=== PATIENT | female | born 1990 | race Caucasian/White ===

== ENCOUNTER 2021-08-12 21:37 | Emergency (ER) | payer OTHER ==
--- OUTSIDE RECORDS SUMMARY | 2021-08-12 21:40 | XMS REPORT | Continuity of Care Document ---
:[address] [facility] t Address [address] [place] [address] Dr. Gomez [address] [place] [address] Care Team Providers Name Role Phone ZACH Attending Clinician Unavailable DR Itz MEEHAN Attending Clinician Unavailable TAI Attending Clinician Unavailable DR Itz MEEHAN Admitting Clinician Unavailable Problems Condition Condition Condition Status Onset Resolution Last Treating Co mments Source Name Details Category Date Date Treatment Clinician Date History of History of Problem Resolve [facility] attention attention d ity of deficit deficit [place] disorder disorder Physic i ans Yeast Yeast Problem Active Univers infection infection ity of of the of the [place] vagina vagina Physici ans UTI UTI Problem Active Univers symptoms symptoms ity of [place] Physici ans Encounter Encounter Problem Active Uni vers for well for well [place] of [place] exam [place] exam [place] with with Physici routine routine ans gynecologi gynecologi sam exam sam exam Vaginal Vaginal Problem Active Univers discharge discharge ity of [place] Physici ans Allergies, Adverse Reactions, Alerts This patient has no known allergies or adverse reactions. Social History Smoking Status Start Date Stop Date Source Never smoker [facility] xa Physicians Medications Ordered Filled Start Stop Current Ordering Indication Dosage Frequency Signature Comments Components Source Medication Medication Date Date Medication? Clinician (SIG) Name Name MetroNIDAZO MetroNIDAZO Yes MICHAEL TAKE 1 Univers LE 500 MG LE 500 MG 2-08 TAI M.D. TABLET BY ity of Oral Tablet Oral Tablet 00:00: MOUTH [place] 00 TWICE Physici DAILY FOR ans 7 DAYS Sulfamethox Sulfamethox Yes MICHAEL 1 Q0.5D TAKE 1 Univers azole-Trime azole-Trime 2-08 TAI M.D. TABLET ity of thoprim thoprim 00:00: TWICE [place] 800-160 MG 800-160 MG 00 DAILY Ph ysici Oral Tablet Oral Tablet a ns Fluconazole Fluconazole Yes MICHAEL 1 QD TAKE 1 Univers 150 MG Oral 150 MG Oral 2-08 LUJAN M.D. TABLET ity of Tablet Tablet 00:00: DAILY [place] 00 Physici ans Nitrofurant Nitrofurant 2017-0 Yes MICHAEL 1 daily Univers oin Monohyd oin Monohyd 09-10 TAI [place] ity of Macro 100 Macro 100 00:00: Ankit as MG Oral MG Oral 00 Physici Capsule Capsule ans Vital Signs Vital Name Observation Time Observation Value Comments Source BP Systolic 2017-10-07 126 mm[Hg] Location: [facility] 10:41:00 Position: [place] Physician s Sitting BP Diastolic 2017-10-07 77 mm[Hg] Location: [facility] 10:41:00 Position: [place] Physician s Sitting Height 2017-10-07 68 [in_us] [facility] 10:41:00 [place] Physician s Weight 2017-10-07 157.5 [lb_av] [facility] 10:41:00 [place] Physician s Body Mass Index 2017-10-07 23.95 kg/m2 University o f Calculated 10:41:00 [place] Physician s Heart Rate 2017-10-07 105 /min [facility] 10:41:00 [place] Physician s Procedures Procedure Date / Time Performed Performing Clinician Pieter Rios [facility] - Affirm 2017-10-07 00:00:00 [facility] VPIII (BV Panel) Physicians . [facility] - 2017-10-07 00:00:00 [place] o f [place] GC/Chlamydia Physicians [[facility]] CULTURE, URINE, 2017-10-07 00:00:00 [facility] ROUTINE Physicians Encounters Start End Encounter Admission Attending Care Care Encounter Source Date/Time Date/Time Type Type Clinicians Facility Department ID 2019-10-[address] [facility] [id number] [facility] oria 23:56:00 l Brendon Ingramoria l [facility] 2021-08-12 2021-08-12 Emergency [facility] [id number] [place] 00:00:00 00:00:[address] 2021-05-09 2021-05-09 Emergency SERRANO, [facility] [id number] [place] 00:00:00 00:00:00 KENDY [address] 2018-06-21 2018-06-21 Emergency Melquiades MEEHAN [facility] ECC [id number] [place] 09:30:00 12:10:00 STEFANO [facility] 2017-10-07 2017-10-07 App[facility]RAUL [facility] [id number] Univers 10:30:00 10:30:00 t; MICHAEL LUJAN, [place] ity leland RODRIGUEZ M.D. [facility] Edy Physici ans 2016-09-10 2016-09-10 Appointmen RAUL LUJAN [facility] [id number] Univers 14:15:00 14:15:00 t; MICHAEL LUJAN, solomon Edy RODRIGUEZ [place] Edy Physici ans Results Test Description Test Time Test Comments Results Result Comments Source URINALYSIS WITH MICRO 2018-06-21 11:54:00 Test Item Value Reference Range Interpretation Comme nts COLOR (test code = COLU) RED YELLOW A CLARITY (test code = CLA) CLOUDY CLEAR A GLUCOSE UR (test code = UA GLUCOSE) NEGATIVE NEGATIVE BILI UR (test code = BILE) NEGATIVE NEGATIVE KETONES UR (test code = AMARI) 2+ NEGATIVE A SP GRAVITY (test code = SPGR) 1.020 1.005-1.030 PH UR (test code = PH) 5.5 4.5-8.0 PROTEIN UR (test code = PU) 1+ NEGATIVE A UROBIL UR (test code = UROQ) 0.2 EU/dL 0.2-1.0 NITRITE UR (test code = NITRITE) NEGATIVE NEGATIVE BLOOD UR (test code = UA BLOOD) 3+ NEGATIVE A LEUK ES UR (test code = LEUK) 1+ NEGATIVE A WBC UR (test code = UWBC) 5 /HPF 0-5 RBC UR (test code = URBC) 65 /HPF 0-2 H EPITH UR (test code = UEPC) FEW /LPF FEW BACTERIA UR (test code = UBACT) FEW /HPF NONE A CAST UR (test code = CAST) /LPF NONE CRYSTAL UR (test code = CRYU) / LPF NONE MUCUS UR (test code = MUC) / HPF NONE AMORPH UR (test code = NEEL) / HPF NONE TRICH UR (test code = UTRICH) /HPF NONE YEAST UR (test code = UY) /HPF NONE SPERM UR (test code = USPERM) /HPF NONE URINE [id number] 11:50:00 Test Item Value Reference Range Interpretation Comments PREG UR (test code = PGU) POSITIVE NEGATIVE A COMPREHENSIVE METABOLIC [id number] 10:34:00 Test Item Value Reference Range Interpretation Comments GLUCOSE (test code = 06D) 84 mg/dL 75-100 SODIUM (test code = 01A) 139 mmol/L 136-145 POTASSIUM (test code = 01B) 3.4 mmol/L 3.6-5.1 L CHLORIDE (test code = 04A) 105 mmol/L 98-107 CO2 (test code = 02A) 22 mmol/L 22-32 ANION GAP (test code = ANG) 15.4 mmol/L BUN (test code = 05D) 9 mg/dL 7-18 CREATININE (test code = 03E) 0.8 mg/dL 0.4-1.1 BUN/CREA (test code = BCR) 11 12-20 L CALCIUM (test code = 09D) 9.1 mg/dL 8.3-9.5 BILI TOTAL (test code = 11A) 0.6 mg/dL 0.2-1.0 PROTEIN (test code = 07D) 7.9 g/dL 6.4-8.2 ALBUMIN (test code = 08D) 4.4 g/dL 3.5-4.8 GLOBULIN (test code = GLB) 3.5 g/dL 1.5-3.8 ALB/GLOB (test code = AGRR) 1.3 1.0-2.6 ALK PHOS (test code = 35A) 57 IU/L 42-121 AST (test code = 30A) 41 IU/L <=42 ALT (test code = 31A) 25 IU/L <=78 BETA HCG QUANTITATIVE [id number] 10:33:00 Test Item Value Reference Range Interpretation Comments BHCG QUANT (test 7269.00 mIU/mL code = A17) BHCGQ (test code = QUANTITATIVE BHCG BHCQ) RESULT INTERPRETATION --- APPROXIMATE APPROXIMATE GESTATIONAL AGE HCG RANGE (WEEKS) (mIU/mL) - 0.2 - 1 5 - 50 1 - 2 50 - 500 2 - 3 100 - 5,000 3 - 4 500 - 10,000 4 - 5 1,000 - 50,000 5 - 6 10,000 - 100,000 6 - 8 15,000 - 200,000 8 - 12 10,000 - 100,000 --- U/S <14 [id number] 10:13:55PELVIC ULTRASOUND:Location code: [id number] HISTORY: Bleeding from vaginaComparison: NoneTECHNIQUE: T ransabdominal sonography of the pelvis was performed. Patientrefused transvaginal examFINDINGS: Theuterus is uniform in echogenicity measuring 9.5 x 6.3 x 6.6 cm. The endometrium is heterogeneous andcontains echogenic debris and/or fluid.There is no visualized gestational sac. The cervix is closed.The right ovary measures 2.3 x 2.4 x 1.8 cm. The left ovary measures 2.2 x 2.8x 2.1 cm. Small follicles are noted bilaterally. Color flow is normal in theovaries bilaterally. Trace free fluid is present within the cul-de-sac. Thereis no adnexal mass. IMPRESSION:No visualized intra- or extrauterine . Recommend correlation withbeta-hCG and follow-up ultrasound in 3-5 days, if indicated.CBC (INCLUDES AUTOMATED DIFFERENTIAL)2018-06-21 10:06:00 Test Item Value Reference Range Interpretation Comments WBC (test code = WBC) 11.4 10\S\3/uL 4.5-11.0 H RBC (test code = RBC) 4.41 10\S\6/uL 4.30-5.70 HGB (test code = HBG) 13.3 g/dL 12.0-15.5 HCT (test code = HCT) 39.0 % 35.0-44.0 MCV (test code = MCV) 88.4 fL 81.0-99.0 MCH (test code = MCH) 30.2 pg 27.0-31.0 MCHC (test code = MCHC) 34.1 g/dL 32.0-36.0 RDW (test code = RDW) 13.4 % 11.5-14.5 PLT (test code = PLT) 338 10\S\3/uL 130-400 MPV (test code = MPV) 10.5 fL 9.4-12.4 NEUTROP # (test code = NE#) 6.7 10\S\3/uL 1.6-8.0 LYMPH # (test code = LY#) 3.1 10\S\3/uL 1.1-3.5 MONOCYTE # (test code = MO#) 0.9 10\S\3/uL 0.0-1.1 EOSINOPH # (test code = EO#) 0.6 10\S\3/uL 0.0-0.7 BASOPHIL # (test code = BA#) 0.2 10\S\3/uL 0.0-0.3 IG # (test code = IG#) 0.03 10\S\3/uL 0.00-0.06 NRBC # (test code = NRBC#) 0.00 10\S\3/uL 0.00-0.01 NEUTROPH % (test code = NE%) 58.9 % 35.0-73.0 LYMPH % (test code = LY%) 26.7 % 20.0-55.0 MONO % (test code = MO%) 7.6 % 2.5-10.0 EOSINOPH % (test code = EO%) 4.9 % 0.0-5.0 BASOPHIL % (test code = BA%) 1.6 % 0.0-2.0 IG % (test code = IG%) 0.3 % 0.0-0.8 NRBC% (test code = NRBC%) 0.0 % 0.0-0.2 MANDIFF (test code = MDIFF) NO NO RBC MORPH (test code = RBCMOR) NORMAL [[facility]] CULTURE, URINE, [id number] 15:28:01 Test Item Value Reference Range Interpretation Comments ORGANISM (test code = Citrobacter koseri 699-9) FINAL REPORT (test >100,000 CFU/mL code = FINAL REPORT) Citrobacter koseri [facility] Physicians[H] [id number] 15:28:01 Test Item Value Reference Range Interpretation Comments ORGANISM (test code = Citrobacter koseri 699-9) Amikacin (test code = - S Amikacin) Cefazolin (test code - S = Cefazolin) Ceftazidime (test - S code = Ceftazidime) Ceftriaxone (test - S code = Ceftriaxone) Ciprofloxacin (test - S code = Ciprofloxacin) Cefepime (test code = - S Cefepime) Gentamicin (test code - S = Gentamicin) Levofloxacin (test - S code = Levofloxacin) Nitrofurantoin (test - S code = Nitrofurantoin) Piperacillin/Tazobact - S am (test code = Piperacillin/Tazobact am) Trimethoprim/Sulfamet - S hoxazole (test code = Trimethoprim/Sulfamet hoxazole) Tobramycin (test code - S = Tobramycin) Meropenem (test code - S = Meropenem) Tetracycline (test SEE NOTES S S= Suscep tible, code = Tetracycline) R= Resi stant, I= Intermediate, N/A= Not Applicable [facility]. [facility] - Affirm VPIII (BV Panel)2017-10-07 00:00:00 Test Item Value Reference Range Interpretation Comments Affirm VPIII (BV Panel) REPORT See Comment (test code = Affirm VPIII (BV Panel) REPORT) [facility] Physicians
[2021-08-12 22:07] LABS: Urine Blood Negative (Negative); Urine Glucose Negative (Negative); Urine Protein Negative (Negative); Urine Specific Gravity >=1.030 (1.005-1.030); Urine pH 5.5 (5.0-7.0)
[2021-08-12 22:30] LABS: Urine Specific Gravity/Preg >1.030 (1.005-1.030)
[2021-08-12] MEDS ORDERED: KETOROLAC 30 MG/ML INJ ONE (22:31)
[2021-08-12] MEDS ORDERED: Ringers Lactate 1,000 ML IV ONE (22:31)
[2021-08-12 22:44] LABS: Absolute Lymphocytes (CBC) 0.6 K/uL (0.7-4.9); Basophils % 0.1 % (0-1.3); Hematocrit 40.6 % (36.0-45.0); Lymphocytes % 6.6 % (15.3-44.8); MPV 8.9 fL (7.6-11.3); RBC Red Blood Cell Count 4.72 M/uL (3.86-4.86)
[2021-08-12 23:03] LABS: Albumin 3.3 g/dL (3.4-5.0); Bilirubin Direct 0.2 mg/dL (0-0.2); Bilirubin Total 0.8 mg/dL (0.2-1.0); Protein, Total 6.5 g/dL (6.4-8.2)
[2021-08-13] MEDS ORDERED: FENTANYL CITR 100 MCG/2 ML ONE (00:21)
--- NOTE | 2021-08-13 00:27 | EDPHYS ---
Physician Documentation [facility] Name: Kate Benson Age: 30 yrs Sex: Female : 1990 Arrival Date: 08/12/2021 Time: 21:38 Bed 13 Private MD: ED Physician Florentin Allen HPI: 08/12 23:13 This 30 yrs old Female presents to ER via Ambulatory with complaints of Abdominal Pain. jr8 23:13 Severity of pain: At its worst the pain was moderate in the emergency department the jr8 pain is unchanged. It is unknown whether or not the patient has had similar symptoms in the past. The patient has not recently seen a physician. This is a 30-year-old female who presented to the emergency room with complaints of lower abdominal discomfort radiating to the back along with fevers. Patient stated that she has had kidney infection in the past and feels like she is starting to have another one. Patient stated that she had nausea vomiting a couple days prior to this but that the rest of family had this also.. 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 - Social history:: Smoking status: Reported history of juuling and/or vaping. ROS: 23:13 Eyes: Negative for injury, pain, redness, and discharge, ENT: Negative for injury, jr8 pain, and discharge, Neck: Negative for injury, pain, and swelling, Cardiovascular: Negative for chest pain, palpitations, and edema, Respiratory: Negative for shortness of breath, cough, wheezing, and pleuritic chest pain, Back: Negative for injury and pain, MS/Extremity: Negative for injury and deformity, Skin: Negative for injury, rash, and discoloration, Neuro: Negative for headache, weakness, numbness, tingling, and seizure. 23:13 Abdomen/GI: Positive for abdominal pain, nausea and vomiting. 23:13 : Positive for urinary symptoms. Exam: 23:13 Constitutional: This is a well developed, well nourished patient who is awake, alert, jr8 and in no acute distress. ENT: Nares patent. No nasal discharge, no septal abnormalities noted. Tympanic membranes are normal and external auditory canals are clear. Oropharynx with no redness, swelling, or masses, exudates, or evidence of obstruction, uvula midline. Mucous membranes moist. Neck: Trachea midline, no thyromegaly or masses palpated, and no cervical lymphadenopathy. Supple, full range of motion without nuchal rigidity, or vertebral point tenderness. No Meningismus. Cardiovascular: Regular rate and rhythm with a normal S1 and S2. No gallops, murmurs, or rubs. Normal PMI, no JVD. No pulse deficits. Respiratory: Lungs have equal breath sounds bilaterally, clear to auscultation and percussion. No rales, rhonchi or wheezes noted. No increased work of breathing, no retractions or nasal flaring. Back: No spinal tenderness. Right-sided CVA tenderness present. Full range of motion. Skin: Warm, dry with normal turgor. Normal color with no rashes, no lesions, and no evidence of cellulitis. MS/ Extremity: Pulses equal, no cyanosis. Neurovascular intact. Full, normal range of motion. Neuro: Awake and alert, GCS 15, oriented to person, place, time, and situation. Cranial nerves II-XII grossly intact. Motor strength 5/5 in all extremities. Sensory grossly intact. Cerebellar exam normal. Normal gait. 23:13 Abdomen/GI: Inspection: abdomen appears normal, Bowel sounds: active, all quadrants, Palpation: soft, in all quadrants, mild abdominal tenderness, in the suprapubic area, right lower quadrant and left lower quadrant, mass, is not appreciated, rebound tenderness, is not appreciated, voluntary guarding, is not appreciated, involuntary guarding, is not appreciated, no appreciated organomegaly, Indicators: McBurney's point is not tender, Beasley's sign is negative, Rovsing's sign is negative, Liver: tenderness, is not appreciated. Vital Signs: 21:46 BP 136 / 74; Pulse 105; Resp 16; Temp 98.9; Pulse Ox 100% on R/A; Weight 58.97 kg; da3 Height 5 ft. 8 in. (172.72 cm); 22:40 BP 126 / 69; Pulse 97; Resp 16; Temp 99.1; Pulse Ox 100% 0 lpm ; Weight 58.97 kg; sv1 Height 5 ft. 8 in. (172.72 cm); Pain 10/10; 22:40 Body Mass Index 19.77 (58.97 kg, 172.72 cm) sv1 MDM: 22:03 Patient medically screened. [facility] 08/13 00:24 Data reviewed: vital signs, nurses notes, lab test result(s), radiologic studies, CT jr8 scan. Data interpreted: Pulse oximetry: on room air is 100 %. Interpretation: normal. Counseling: I had a detailed discussion with the patient and/or guardian regarding: the historical points, exam findings, and any diagnostic results supporting the discharge/admit diagnosis, lab results, radiology results, the need for outpatient follow up, a family practitioner, to return to the emergency department if symptoms worsen or persist or if there are any questions or concerns that arise at home. ED course: Discussed with patient that her low-grade fevers and abdominal cramping is most likely secondary to an enteritis based on CT scan. Blood work unremarkable otherwise and no signs for urinary tract infection or other intra-abdominal pathology. We will put her on nausea medicine and Bentyl to help with the pain but otherwise supportive care can be done at this time. If she were to worsen or have other symptoms to come back for further evaluation. Needs to follow-up with her primary care in the next 1 to 2 days.. 08/12 22:07 Order name: Urine Dipstick-Ancillary; Complete Time: 22:18 EDMD 08/12 22:07 Order name: Urine --Ancillary (enter results); Complete Time: 22:36 [facility] 08/12 22:18 Order name: CBC with Diff; Complete Time: 00:53 [facility] 08/12 22:18 Order name: Basic Metabolic Panel; Complete Time: 23:15 [facility] 08/12 22:18 Order name: LFT's; Complete Time: 23:15 [facility] 08/12 22:46 Order name: Manual Differential; Complete Time: 00:53 EDMD 08/12 22:07 Order name: Urine Test (obtain specimen); Complete Time: 22:07 2 08/12 22:07 Order name: Urine Dipstick-Ancillary (obtain specimen); Complete Time: 22:07 [facility] 08/12 22:18 Order name: IV; Complete Time: 22:28 [facility] 08/12 23:16 Order name: CT Abd/Pelvis - IV Contrast Only jr8 Administered Medications: 08/12 22:39 Drug: Ringers - Lactated Ringers Solution 1000 ml Route: IV; Rate: bolus; Site: right sv1 antecubital; 23:40 Follow up: IV Intake: 1000ml sv1 23:56 Follow up: IV Intake: 1000ml sv1 08/13 01:02 Follow up: IV Status: Completed infusion; IV Intake: 1000ml sv1 08/12 22:39 Drug: Ketorolac 15 mg Route: IVP; Site: right antecubital; sv1 23:40 Follow up: Response: Pain is decreased sv1 23:55 Follow up: Response: No adverse reaction; Pain is unchanged, physician notified sv1 08/13 00:25 Drug: fentaNYL (PF) 50 mcg Route: IVP; Site: right antecubital; sv1 00:56 Follow up: Response: Pain is decreased sv1 01:00 Follow up: Response: Pain is decreased sv1 Disposition: 07:04 Co-signature as Attending Physician, Florentin Allen MD I agree with the assessment and marisol plan of care. Disposition Summary: 08/13/21 00:26 Discharge Ordered Location: Home jr8 Problem: new jr8 Symptoms: have improved jr8 Condition: Stable jr8 Diagnosis - Acute enteritis jr8 Followup: jr8 - With: Private Physician - When: 2 - 3 days - Reason: Recheck today's complaints, Continuance of care, Re-evaluation by your physician Discharge Instructions: - Discharge Summary Sheet jr8 - Viral Gastroenteritis, Adult jr8 Forms: - Medication Reconciliation Form jr8 - Thank You Letter jr8 - Antibiotic Education jr8 - Prescription Opioid Use jr8 Prescriptions: - promethazine 25 mg Oral Tablet - take 1 tablet by ORAL route every 6 hours As needed; 20 tablet; Refills: 0, jr8 Product Selection Permitted - dicyclomine 20 mg Oral Tablet - take 1 tablet by ORAL route 3 times per day As needed; 21 tablet; Refills: 0, jr8 Product Selection Permitted Signatures: Dispatcher [employer] Florentin Haines MD MD cha Roszak, Josh, PA PA jr8 Lorena Soto mw2 Ronnie Horne RN RN da3 Morgan Fu RN RN sv1
--- NOTE | 2021-08-13 00:27 | ER ---
Nurse's Notes [facility] Name: Kate Benson Age: 30 yrs Sex: Female : 1990 Arrival Date: 08/12/2021 Time: 21:38 Bed 13 Private MD: Diagnosis: Acute enteritis Presentation: 08/12 21:46 Chief complaint: Patient states: body aches, vomiting x 1 day Pt performed home test da3 for UTI it was positive. Coronavirus screen: Vaccine status: Patient reports being unvaccinated. Ebola Screen: No symptoms or risks identified at this time. Initial Sepsis Screen: Does the patient meet any 2 criteria? No. Patient's initial sepsis screen is negative. Does the patient have a suspected source of infection? No. Patient's initial sepsis screen is negative. Risk Assessment: Do you want to hurt yourself or someone else?. Risk Assessment: Do you want to hurt yourself or someone else? Patient reports no desire to harm self or others. Onset of symptoms was August 11, 2021 at 09:00. 21:46 Method Of Arrival: Ambulatory da3 21:46 Acuity: [place] 3 da3 Triage Assessment: 21:50 General: Appears in no apparent distress. comfortable, Behavior is calm, cooperative. da3 Pain: Complains of pain in back and abdomen Pain currently is 10 out of 10 on a pain scale. 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 - Social history:: Smoking status: Reported history of juuling and/or vaping. Screenin:41 Abuse screen: none. Nutritional screening: No deficits noted. Tuberculosis screening: sv1 No symptoms or risk factors identified. Fall Risk None identified. Assessment: 08/13 01:02 Reassessment: Cleared for discharge to home by the provider. Dc'd via ambulatory. . sv1 Vital Signs: 08/12 21:46 BP 136 / 74; Pulse 105; Resp 16; Temp 98.9; Pulse Ox 100% on R/A; Weight 58.97 kg; da3 Height 5 ft. 8 in. (172.72 cm); 22:40 BP 126 / 69; Pulse 97; Resp 16; Temp 99.1; Pulse Ox 100% 0 lpm ; Weight 58.97 kg; sv1 Height 5 ft. 8 in. (172.72 cm); Pain 10/10; 22:40 Body Mass Index 19.77 (58.97 kg, 172.72 cm) sv1 ED Course: 21:38 Patient arrived in ED. da3 21:50 Triage completed. da3 21:50 Arm band placed on right wrist. da3 22:02 Erlin Regalado PA is PHCP. jr8 22:02 Florentin Allen MD is Attending Physician. jr8 22:09 Morgan Fu, GILBERTO is Primary Nurse. sv1 22:28 Basic Metabolic Panel Sent. ds4 22:28 LFT's Sent. ds4 22:28 CBC with Diff Sent. ds4 22:41 Patient has correct armband on for positive identification. Bed in low position. Call sv1 light in reach. Side rails up X 1. 22:41 No provider procedures requiring assistance completed. Inserted saline lock: 20 gauge sv1 in right antecubital area, using aseptic technique. 23:53 CT Abd/Pelvis - IV Contrast Only In Process Unspecified. EDMS Administered Medications: 22:39 Drug: Ringers - Lactated Ringers Solution 1000 ml Route: IV; Rate: bolus; Site: right sv1 antecubital; 23:40 Follow up: IV Intake: 1000ml sv1 23:56 Follow up: IV Intake: 1000ml sv1 08/13 01:02 Follow up: IV Status: Completed infusion; IV Intake: 1000ml sv1 08/12 22:39 Drug: Ketorolac 15 mg Route: IVP; Site: right antecubital; sv1 23:40 Follow up: Response: Pain is decreased sv1 23:55 Follow up: Response: No adverse reaction; Pain is unchanged, physician notified sv1 08/13 00:25 Drug: fentaNYL (PF) 50 mcg Route: IVP; Site: right antecubital; sv1 00:56 Follow up: Response: Pain is decreased sv1 01:00 Follow up: Response: Pain is decreased sv1 Intake: 08/12 23:40 IV: 1000ml; Total: 1000ml. sv1 23:56 IV: 1000ml; Total: 2000ml. sv1 08/13 01:02 IV: 1000ml; Total: 3000ml. sv1 Outcome: 00:26 Discharge ordered by MD. loera 01:01 Discharged to home ambulatory, with family. sv1 01:01 Condition: improved 01:01 Discharge instructions given to patient, family. 01:04 Patient left the ED. sv1 Signatures: Dispatcher [employer] EDMS Erlin Regalado PA PA jr8 Dudley Reed ds4 Ronnie Horne, RN RN da3 Morgan Fu, GILBERTO RN sv1
[2021-08-13 00:53] LABS: Blood Morphology Comment NOT SEEN (NOT SEEN); Platelet Estimate ADEQ
[2021-08-13 01:46] VITALS: O2SAT 100
[2021-08-13 02:13] VITALS: BP 126/69; TEMP 99.1
--- NOTE | 2021-08-13 12:17 | RAD REPORT ---
EXAM DESCRIPTION: CT - Abdomen Pelvis W Contrast - 08/13/2021 6:26 am CLINICAL HISTORY: The patient is 30 years old and is Female; ABD PAIN TECHNIQUE: Axial computed tomography images of the abdomen and pelvis with intravenous contrast. S agittal and coronal reformatted images were created and reviewed. This CT exam was performed using one or more of the following dose reduction techniques: automated exposure control, adjustment of t he mA and/or kV according to patient size, and/or use of iterative reconstruction technique. COMPARISON: No relevant prior studies available. FINDINGS: LUNG BASES: Unremarkable. No mass. No consolidation. ABDOMEN: LIVER: Unremarkable. No mass. GALLBLADDER AND BILE DUCTS: No calcified stones. No ductal dilation. PANCREAS: No ductal dilation. No mass. SPLEEN: Unremarkable. ADRENALS: Unremarkable. No mass. KIDNEYS AND URETERS: Unremarkable. The kidneys enhance symmetrically. No obstructing renal or ur eteral calculus is seen. No hydronephrosis or hydroureter. No perinephric fluid or stranding. STOMACH AND BOWEL: The stomach is not well distended. The small bowel is relatively decompressed . The distal small bowel is fluid-filled. A moderate amount stool is present throughout colon. There is no mucosal thickening or evidence of bowel obstruction. PELVIS: APPENDIX: The appendix is normal in caliber without surrounding inflammation. BLADDER: Unremarkable. No mass. REPRODUCTIVE: IUD is in place. A 1.9 cm right ovarian cyst is present. No follow-up imaging is recommended. The uterus and left ovary are normal. ABDOMEN and PELVIS: INTRAPERITONEAL SPACE: Trace free fluid is present within the pelvis which is likely physiologic . No free air. BONES/JOINTS: No acute fracture. SOFT TISSUES: The soft tissues are normal. VASCULATURE: Unremarkable. No abdominal aortic aneurysm. LYMPH NODES: Unremarkable. No enlarged lymph nodes. IMPRESSION: Nonspecific fluid-filled distal small bowel loops. Findings could be secondary to mild e nteritis. No bowel obstruction. Electronically signed by: Camilla Hernandez MD 08/13/2021 12:08 AM VIDEO CONTROL OPERATOR Due to temporary technical issues with the PACS/Fluency reporting system, reports are being signed by the in house radiologist without review as a courtesy to ensure prompt reporting. The interpreting r adiologist is fully responsible for the content of the report.
== END 2021-08-13 01:04 | disposition home or self-care (01) ==
LOC: ER 21:37
DX: K52.9 Noninfective gastroenteritis and colitis, unspecified (principal)
CPT/HCPCS: 85025; 80048; 36415; 81025; 80076; 81003; 74177; Q9967; J3010; J7120